=== PATIENT | female | born 1950 | race Caucasian/White ===

== ENCOUNTER 2017-08-02 10:55 | Inpatient (IN) | payer OTHER, MEDICARE ==
[2017-08-02] MEDS ORDERED: SODIUM CHLORIDE 1,000 ML IV STA (11:23)
--- NOTE | 2017-08-02 11:23 | PDOC ---
History of Present Illness - General Chief Complaint: Weakness Stated Complaint: Weakness Time Seen by Provider: 08/02/17 11:08 History Source: Patient, EMS, Family Exam Limitations: No Limitations - History of Present Illness Initial Comments: This is a 67 YOF with h/o ulcerative colitis (s/p hemicolectomy with colostomy in the ), HTN (on atenolol), and hysterectomy (on estrogen patch) who p/w generalized weakness, lightheadedness, nausea, vomiting, and diarrhea for the past two days. She has had decreased PO food and liquid intake but has been able to keep down her normal medications. The vomiting was isolated to a 2-3 hour period on Saturday night shortly after the onset She has not taken medications for her symptoms. She has been having bilateral leg cramps and occasional palpitations as well, but these are not new problems for her (though the leg cramps are the worst they have ever been). She denies any fever, chills , constipation, headache, vision changes, numbness, tingling, focal weakness, chest pain, SOB, leg swelling, abdominal pain, dysuria, strong smells to the urine, strange colors to the urine, black/bloody colostomy output, or other symptoms. Past History - Past Medical History Allergies/Adverse Reactions: Allergies Allergy/AdvReac Type Severity Reaction Status Date / Time Penicillins Allergy Severe Swelling Verified 08/02/17 11:23 shellfish derived Allergy Severe Swelling Verified 08/02/17 11:23 Home Medications: Ambulatory Orders Atenolol [Tenormin -] 25 mg PO HS 07/12/15 Estradiol [Climara] 1 each TD WEEKLY 07/12/15 Cardiac Disorders: Yes (CARDIAC ARRHYTHMIA, MVP) CVA: Yes (RT EYE VISION LOSS) GI Disorders: Yes (ULCERATIVE COLITIS) HTN: Yes - Surgical History Abdominal Surgery: Yes (PROCTOCOLECTOMY WITH ILEOSTOMY 1981.) - Suicide/Smoking/Psychosocial Hx Smoking History: Never smoked Have you smoked in the past 12 months: No Hx Alcohol Use: No Drug/Substance Use Hx: No Substance Use Type: None Review of Systems - Review of Systems Able to Perform ROS?: Yes Constitutional: Yes: Weakness, Unintentional Wgt. Loss. No: Chills, Fever HEENTM: No: Nose Congestion, Throat Pain Respiratory: No: Cough, Shortness of Breath Cardiac (ROS): Yes: Lightheadedness. No: Chest Pain, Palpitations ABD/GI: Yes: Diarrhea, Nausea, Vomiting. No: Constipated : No: Burning, Dysuria Musculoskeletal: No: Back Pain, Neck Pain Integumentary: No: Bruising, Rash Neurological: No: Headache, Numbness, Tingling, Weakness, Dizziness Endocrine: No: Unexplained Weight Gain, Unexplained Weight Loss *Physical Exam - Physical Exam General Appearance: Yes: Appropriately Dressed, Thin, Other (adult female who is resting on hospital bed in no distress, accompanied at bedside by family, answering questions appropriately). No: Apparent Distress HEENT: positive: EOMI, Normal Voice, Hearing Grossly Normal. negative: Scleral Icterus (R), Scleral Icterus (L), Nasal Congestion Neck: positive: Trachea midline, Supple. negative: Tender, Rigid Respiratory/Chest: positive: Lungs Clear, Normal Breath Sounds. negative: Respiratory Distress, Crackles, Rhonchi, Stridor, Wheezing Cardiovascular: positive: S1, S2, Other (regular rate with ectopic beats). negative: JVD Gastrointestinal/Abdominal: positive: Normal Bowel Sounds, Soft. negative: Tender, Organomegaly, Pulsatile Mass, Guarding Musculoskeletal: positive: Normal Inspection. negative: Decreased Range of Motion, Vertebral Tenderness Extremity: positive: Normal Capillary Refill, Normal Inspection, Normal Range of Motion. negative: Tender, Cyanosis Integumentary: positive: Normal Color, Dry, Warm. 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 negative: Facial Droop, Confused, Disoriented ED Treatment Course - LABORATORY CBC & Chemistry Diagram: 08/02/17 12:04 08/02/17 12:04 Medical Decision Making - Medical Decision Making 08/02/17 15:27 Patient states her PCP is Klaeigh Florence at [facility]. *DC/Admit/Observation/Transfer Diagnosis at time of Disposition: Dehydration, MARGOT (acute kidney injury), Hyperbilirubinemia, Generalized weakness Nausea & vomiting Qualifiers: Vomiting type: unspecified Vomiting Intractability: non-intractable Qualified Code(s): R11.2 - Nausea with vomiting, unspecified Diarrhea Qualifiers: Diarrhea type: unspecified type Qualified Code(s): R19.7 - Diarrhea, unspecified - Discharge Dispostion Condition at time of disposition: Guarded Admit: Yes - Referrals - Patient Instructions - Post Discharge Activity
[2017-08-02 12:25] LABS: BASO % 0.2 % (0-2.0); EOS % 0.1 % (0-4.5); HEMATOCRIT 46.5 % (32.4-45.2); HEMOGLOBIN 14.9 GM/dL (10.7-15.3); LYMPH % 8.7 % (8-40); MCH 28.5 pg (25.7-33.7); MCHC 32.1 g/dl (32.0-36.0); MEAN CELL VOLUME 88.8 fl (80-96); MEAN PLT VOLUME 7.4 fl (7.5-11.1); MONO % 16.2 % (3.8-10.2); NEUT % 74.8 % (42.8-82.8); PLATELET COUNT 216 K/MM3 (134-434); RBC 5.23 M/mm3 (3.60-5.2); RDW 15.2 % (11.6-15.6); WHITE BLOOD COUNT 4.3 K/mm3 (4.0-10.0)
[2017-08-02 12:42] LABS: INR 1.08 (0.82-1.09); PROTHROMBIN TIME (PATIENT) 12.2 SEC (9.98-11.88)
--- NOTE | 2017-08-02 12:48 | PDOC ---
Attending Attestation - HPI HPI: 08/02/17 13:20 The patient is a 67 year old female, with a significant past medical history of ulcerative colitis, hypertension, hysterectomy, who presents to the emergency department with, approx. 2 days of generalized weakness, lightheadedness, nausea , emesis and diarrhea. She denies recent fever, chills, or headache. She denies recent chest pain, palpitations or shortness of breath. Allergies: penicillins, shellfish derived Documentation prepared by Maurilio Gupta, acting as medical authorization specialist for Augustus Gilbert MD. <Maurilio Gupta - Last Filed: 08/02/17 14:28> - Resident Resident Name: Rose Marie Reese - ED Attending Attestation I have performed the following: I have examined & evaluated the patient, The case was reviewed & discussed with the resident, I agree w/resident's findings & plan, Exceptions are as noted - Physicial Exam PE: 08/02/17 16:49 Patient is awake and alert, well-nourished, nontoxic-appearing, afebrile; Normocephalic, atraumatic; PERRLA, EOMI, mm-dry cta rrr Soft, nontender, nondistended; ileostomy in the right lower quadrant No rash - Medical Decision Making 08/02/17 16:50 Patient 67-year-old female with history of altered colitis, status post colectomy with ileostomy presents to the ER with generalized weakness and malaise as well as numerous bouts of nonbloody nonbilious vomiting there were limited to a short period of time that have now resolved. In the ER, patient is awake and alert, afebrile, with serial abdominal exams revealing no focal tenderness, there is no evidence of abdominal distention and bowel sounds are normal in all 4 quadrants. CBC reveals elevated H&H likely consistent with hemoconcentration. BUN/creatinine is also elevated from baseline. Will hydrate , will consult GI Will place him of. <Augustus Gilbert - Last Filed: 08/02/17 16:51> Heart Score/ECG Review #1 08/02/17 13:27 Normal Sinus Rhythm at 82 bpm at 11:[address] Gilbert. <Maurilio Gupta - Last Filed: 08/02/17 14:28>
[2017-08-02 13:38] LABS: URINE APPEARANCE CLOUDY; URINE BILIRUBIN NEGATIVE (NEGATIVE); URINE BLOOD 1+ (NEGATIVE); URINE COLOR AMBER; URINE GLUCOSE (UA) NEGATIVE (NEGATIVE); URINE KETONE TRACE (NEGATIVE); URINE LEUK ESTERASE NEGATIVE (NEGATIVE); URINE NITRITE NEGATIVE (NEGATIVE); URINE UROBILINOGEN NEGATIVE mg/dL (0.2-1.0)
[2017-08-02 13:41] LABS: URINE PROTEIN 2+ (NEGATIVE)
[2017-08-02 13:55] LABS: EPI CELLS RARE /HPF (FEW); GRANULAR CASTS 5 /lpf; URINE HYALINE CAST 137 /lpf
--- NOTE | 2017-08-02 13:59 | EKG ---
Test Reason : Blood Pressure : / mmHG Vent. Rate : 082 BPM Atrial Rate : 082 BPM P-R Int : 118 ms QRS Dur : 070 ms QT Int : 398 ms P-R-T Axes : 087 046 -51 degrees QTc Int : 464 ms POOR DATA QUALITY, INTERPRETATION MAY BE ADVERSELY AFFECTED NORMAL SINUS RHYTHM BIATRIAL ENLARGEMENT ABNORMAL ECG WHEN COMPARED WITH ECG OF 13-JUL-2015 09:16, T WAVE INVERSION MORE EVIDENT IN INFERIOR LEADS T WAVE INVERSION NOW EVIDENT IN ANTERIOR LEADS Confirmed by DOMENICA SEVERINO MD ([id number]) on 08/02/2017 1:59:08 PM Referred By: Confirmed By:DOMENICA SEVERINO MD
[2017-08-02 15:14] LABS: ALBUMIN 4.4 g/dl (3.4-5.0); ANION GAP 8 (8-16); BILIRUBIN,TOTAL 1.9 mg/dL (0.2-1.0); BLOOD UREA NITROGEN 40 mg/dL (7-18); CALCIUM 8.7 mg/dL (8.5-10.1); CHLORIDE 102 mmol/L (98-107); CO2 27 mmol/L (21-32); CREATININE 1.9 mg/dL (0.55-1.02); GLUCOSE,RANDOM 97 mg/dL (74-106); MAGNESIUM 2.4 mg/dL (1.8-2.4); POTASSIUM 3.9 mmol/L (3.5-5.1); SGOT/AST 16 U/L (15-37); SGPT/ALT 22 U/L (12-78); SODIUM 137 mmol/L (136-145); TOT PROT 8.6 g/dl (6.4-8.2)
[2017-08-02 15:17] LABS: ALK PHOS 73 U/L (45-117)
[2017-08-02] MEDS ORDERED: DEXTROSE 5%-0.45% SALINE 1,000 ML IV SCH (17:00)
[2017-08-02] MEDS ORDERED: ATENOLOL 25 MG TABLET (FP) ONE (18:10)
[2017-08-02] MEDS ORDERED: ATENOLOL 25 MG TABLET (FP) PO ONE (18:15)
--- NOTE | 2017-08-02 18:25 | PN ---
Teaching Attending Note Name of Resident: Michelle Dacosta ATTENDING PHYSICIAN STATEMENT I saw and evaluated the patient. I reviewed the resident's note and discussed the case with the resident. I agree with the resident's findings and plan as documented. SUBJECTIVE:67yo F with PMH UC s/p total colectomy with colostomy placement, HTN , s/p hysterectomy on estrogen patch presented to the ER with nausea and vomiting and diarrhea. symptoms began on saturday with abdominal pain and nausea and vomiting. assoc with loose stools. abdominal pain with vomiting resolved 2 days ago but the loose stools persisted which prompted her to the ER. states she experiences this infrequently but only last several days. denies CP, SOB, fever, chills, cough, dysuria, hematuria. no recent changes to diet, no recent travel last EGD/colonoscopy was 2 years ago and was negative per pt does watch granddaughter frequently and did watch her on saturday the day her symptoms began. She only had a rash no other symptoms. she attends daycare OBJECTIVE: Last Vital Signs Temp Pulse Resp BP Pulse Ox 98.2 F 94 H 16 158/101 96 08/02/17 16:57 08/02/17 16:57 08/02/17 16:57 08/02/17 16:57 08/02/17 16:57 General NAD thin appearing, bitemporal wasting, prominent clavicles, CV S1 S2 RRR no murmur/rub/gallop Lungs CTA B/L no wheezing/rales/rhonchi Abdomen soft NT/ND +colostomy bag, scaffoid abdomen Extremities no pedal edema ASSESSMENT AND PLAN: 67yo F with PMH UC s/p total colectomy with colostomy placement, HTN, s/p hysterectomy on estrogen patch presented to the ER with nausea and vomiting and diarrhea 1. Diarrhea- medicine observation. high suspicion for viral gastroenteritis. clinically improved iwth IVF. robert cont for now. Gi consulted. check stool cx, O& P. low concern for cdiff (no abdominal pain, fevers, recent ABx use). 2. MARGOT- due to dehydration. give IVF. avoid nephrotoxic agents 3. HTN urgency- due to missing medications. re-start atenolol 4. Hyperbilirubinemia- no signs of jaundice. no signs of cholestasis. will monitor for now, if increased with get abdominal u/s to further evaluate cbd and liver 5. Malnutrition-evident by body habitus and BMI 17. very limited diet. very bland. nutritional eval 6. UC s/p total colectomy with colostomy placement 7. DVT ppx- EAM
--- NOTE | 2017-08-02 18:28 | HP ---
CHIEF COMPLAINT: Diarrhea PCP: Dr. Gomez HISTORY OF PRESENT ILLNESS: 67 yo F with PMHx of UC (total colectomy in the 80s) , HTN, arthritis, s/p hysterectomy (estrogen patch), hiatal hernia, presented to the ED because of profuse, foul-smelling, watery diarrhea that started 2 days ago. Patient says 2 days ago she experienced stabbing, abdominal pain, nausea, and vomiting 2 days ago with B/L LE muscle cramps. She denies a change to her diet. She consumes [employer] Ensure. Patient says the abdominal pain , nausea, and vomiting resolved 2 days ago and presented today because of the persistent diarrhea. Patient states the lower extremity cramps resolved when fluids were given. Patient denies nausea, vomiting, diarrhea, abdominal pain, cramping, SOB, headache, chest pain, dysuria, discoloration of skin, hematemesis , melena, chills, weight loss, fevers, night sweats, numbness, tingling. ER course was notable for: (1) IV Fluids (2) CXR- unremarkable for acute pathology (3) EKG- T wave inversion in anterior and inferior leads Recent Travel: none PAST MEDICAL HISTORY: Per HPI PAST SURGICAL HISTORY: total colectomy in 's, hysterctomy Social History: Smoking: denies Alcohol: denies Drugs: denies Family History: Son with UC Allergies Penicillins Allergy (Severe, Verified 08/02/17 11:23) Swelling "THROAT CLOSES UP" shellfish derived Allergy (Severe, Verified 08/02/17 11:23) Swelling " THROAT CLOSES UP " HOME MEDICATIONS: Home Medications Medication Instructions Recorded Atenolol [Tenormin -] 25 mg PO HS 07/12/15 Estradiol [Climara] 1 each TD WEEKLY 07/12/15 REVIEW OF SYSTEMS CONSTITUTIONAL: generalized weakness Absent: fever, chills, diaphoresis, malaise, loss of appetite, weight change HEENT: Absent: rhinorrhea, nasal congestion, throat pain, throat swelling, difficulty swallowing, mouth swelling, ear pain, eye pain, visual changes CARDIOVASCULAR: Absent: chest pain, syncope, palpitations, irregular heart rate, lightheadedness , peripheral edema RESPIRATORY: Absent: cough, shortness of breath, dyspnea with exertion, orthopnea, wheezing, stridor, hemoptysis GASTROINTESTINAL: diarrhea Absent: abdominal pain, abdominal distension, nausea, vomiting, constipation, melena, hematochezia GENITOURINARY: Absent: dysuria, frequency, urgency, hesitancy, hematuria, flank pain, genital pain MUSCULOSKELETAL: Absent: myalgia, arthralgia, joint swelling, back pain, neck pain SKIN: Absent: rash, itching, pallor HEMATOLOGIC/IMMUNOLOGIC: Absent: easy bleeding, easy bruising, lymphadenopathy, frequent infections ENDOCRINE: Absent: unexplained weight gain, unexplained weight loss, heat intolerance, cold intolerance NEUROLOGIC: Absent: headache, focal weakness or paresthesias, dizziness, unsteady gait, seizure, mental status changes, bladder or bowel incontinence PSYCHIATRIC: Absent: anxiety, depression, suicidal or homicidal ideation, hallucinations. PHYSICAL EXAMINATION Vital Signs - 24 hr 08/02/17 08/02/17 08/02/17 10:55 12:13 16:57 Temperature 97.9 F 98.2 F Pulse Rate 90 84 Pulse Rate [ 94 H Left Apical] Respiratory 18 16 Rate Blood Pressure 175/95 Blood Pressure 158/101 [Left Arm] O2 Sat by Pulse 100 98 96 Oximetry (%) GENERAL: Thin appearing, NAD, appears comfortable HEAD: Normal with no signs of trauma. EYES: Pupils equal, round and reactive to light, extraocular movements intact, sclera anicteric, conjunctiva clear. EARS, NOSE, THROAT: oropharynx clear without exudates. Dry mucous membranes NECK: Normal range of motion, supple without lymphadenopathy, JVD, or masses. LUNGS: Breath sounds equal, clear to auscultation bilaterally. No wheezes, and no crackles. HEART: Regular rate and rhythm, normal S1 and S2 without murmur, rub or gallop. ABDOMEN: Ostomy bag, Soft, nontender, not distended, normoactive bowel sounds MUSCULOSKELETAL: Normal range of motion at all joints. UPPER EXTREMITIES: 2+ pulses, warm, well-perfused. No cyanosis. No clubbing. No peripheral edema. LOWER EXTREMITIES: 2+ pulses, warm, well-perfused. No calf tenderness. No peripheral edema. NEUROLOGICAL: symmetric face, no facial droop, Cranial nerves II-XII intact. Normal speech. 5/5 strength throughout, sensations intact b/l throughout PSYCHIATRIC: Cooperative. Good eye contact. Appropriate mood and affect. SKIN: Warm, dry, normal turgor, no rashes or lesions noted, normal capillary refill. Laboratory Results - last 24 hr 08/02/17 08/02/17 08/02/17 12:04 12:04 12:04 WBC 4.3 RBC 5.23 H Hgb 14.9 Hct 46.5 H MCV 88.8 MCH 28.5 MCHC 32.1 RDW 15.2 Plt Count 216 MPV 7.4 L Neutrophils % 74.8 Lymphocytes % 8.7 Monocytes % 16.2 H Eosinophils % 0.1 Basophils % 0.2 PT with INR 12.20 H INR 1.08 D-Dimer 351 Sodium Potassium Chloride Carbon Dioxide Anion Gap BUN Creatinine Creat Clearance w eGFR Random Glucose Calcium Phosphorus Magnesium Total Bilirubin AST ALT Alkaline Phosphatase Creatine Kinase Troponin I Total Protein Albumin Urine Color Rubi Urine Appearance Cloudy Urine pH 5.0 Ur Specific [place] 1.023 Urine Protein 2+ H Urine Glucose (UA) Negative Urine Ketones Trace H Urine Blood 1+ H Urine Nitrite Negative Urine Bilirubin Negative Urine Urobilinogen Negative Ur Leukocyte Esterase Negative Urine WBC (Auto) 6 Urine RBC (Auto) 6 Ur Epithelial Cells Rare Hyaline Casts 137 Granular Casts 5 Blood Type Antibody Screen 08/02/17 08/02/17 08/02/17 12:04 12:04 12:04 WBC RBC Hgb Hct MCV MCH MCHC RDW Plt Count MPV Neutrophils % Lymphocytes % Monocytes % Eosinophils % Basophils % PT with INR INR D-Dimer Sodium 137 Potassium 3.9 Chloride 102 Carbon Dioxide 27 Anion Gap 8 BUN 40 H Creatinine 1.9 H Creat Clearance w eGFR 26.21 Random Glucose 97 Calcium 8.7 Phosphorus 5.6 H Magnesium 2.4 Total Bilirubin 1.9 H AST 16 ALT 22 Alkaline Phosphatase 73 Creatine Kinase 52 Troponin I < 0.02 Total Protein 8.6 H Albumin 4.4 Urine Color Urine Appearance Urine pH Ur Specific [place] Urine Protein Urine Glucose (UA) Urine Ketones Urine Blood Urine Nitrite Urine Bilirubin Urine Urobilinogen Ur Leukocyte Esterase Urine WBC (Auto) Urine RBC (Auto) Ur Epithelial Cells Hyaline Casts Granular Casts Blood Type O POSITIVE Antibody Screen Negative ASSESSMENT/PLAN: 67 yo F with PMHx of UC (total colectomy in the 80s), HTN, arthritis, s/p hysterectomy (estrogen patch), hiatal hernia, admitted for persistent profuse, foul-smelling, watery diarrhea and MARGOT. #Acute Diarrhea -likely secondary to Gastroenteritis -clinically improved with IV fluids -Afebrile, no leukocytosis or abdominal pain -IV fluids NS@ 75 ml/ hour -GI consulted: Dr. Jones -Stool O & P, Stool culture, Stool WBC -FU am labs #MARGOT -likely hypovolemia from diarrhea and vomiting -BUN 40, Cr 1.9 -IV fluids @75ml/hour -Avoid nephrotoxins -Will monitor #Hyperbilirubinemia -likely consequence of hypovolemia and MARGOT. - ?[place] -T.bili 1.9 -no signs of jaundice, no signs of cholestasis. -Will monitor LFTs -If no improvement, consider Abd U/S to further evaluate common bile duct and liver. #HTN urgency -due to missing medication -1x dose Atenolol 25mg -cont. home Meds Atenolol -Will monitor #Malnutrition -BMI 17 -Hx of Total colectomy -Limited diet -nutritional Eval #Ulcerative colitis -s/p total colectomy () -Follow up outpatient #FEN - D5 1/2 NS @ 125/hour -Replete as needed -Low sodium diet #DVT PPX -EAM Admit OBS Visit type - Emergency Visit Emergency Visit: Yes ED Registration Date: 08/02/17 Care time: The patient presented to the Emergency Department on the above date and was hospitalized for further evaluation of their emergent condition. - New Patient This patient is new to me today: Yes Date on this admission: 08/02/17 - Critical Care Critical Care patient: No
[2017-08-02] MEDS ORDERED: ONDANSETRON 4 MG/2 ML VIAL IVPB PRN (18:51)
[2017-08-02] MEDS: ATENOLOL 25 MG TABLET (FP) PO SCH (21:23)
[2017-08-02] MEDS: SODIUM CHLORIDE 1,000 ML IV SCH (21:28)
[2017-08-02 22:49] VITALS: BMI 16.5
[2017-08-03 08:09] LABS: HEMATOCRIT 40.8 % (32.4-45.2); MCH 28.2 pg (25.7-33.7); MEAN CELL VOLUME 88.1 fl (80-96); MEAN PLT VOLUME 7.2 fl (7.5-11.1); PLATELET COUNT 179 K/MM3 (134-434); RBC 4.63 M/mm3 (3.60-5.2); RDW 14.9 % (11.6-15.6); WHITE BLOOD COUNT 3.3 K/mm3 (4.0-10.0)
[2017-08-03 08:43] LABS: CALCIUM 7.8 mg/dL (8.5-10.1); CHLORIDE 108 mmol/L (98-107); POTASSIUM 3.3 mmol/L (3.5-5.1); SODIUM 142 mmol/L (136-145)
[2017-08-03 08:49] LABS: ALBUMIN 3.4 g/dl (3.4-5.0); ALK PHOS 59 U/L (45-117); ANION GAP 9 (8-16); BILIRUBIN,TOTAL 1.8 mg/dL (0.2-1.0); BLOOD UREA NITROGEN 27 mg/dL (7-18); CO2 25 mmol/L (21-32); CREATININE 0.7 mg/dL (0.55-1.02); GLUCOSE,RANDOM 79 mg/dL (74-106); MAGNESIUM 2.1 mg/dL (1.8-2.4); PHOSPHOROUS 2.4 mg/dL (2.5-4.9); SGOT/AST 16 U/L (15-37); SGPT/ALT 18 U/L (12-78); TOT PROT 6.9 g/dl (6.4-8.2)
[2017-08-03 10:03] LABS: PLATELET ESTIMATE ADEQUATE
--- NOTE | 2017-08-03 11:02 | PN ---
Progress Note (short form) - Note Progress Note: continues to have loose BM through colostomy but less. still feels weak. denies abdominal pain, fever, chills, N/V/C. ate very little breakfast Current Medications Generic Name Dose Route Start Last Admin Trade Name Freq PRN Reason Stop Dose Admin Atenolol 25 mg 08/02/17 22:00 08/02/17 21:23 Tenormin - PO Not Given HS LIBBY Sodium Chloride 1,000 mls @ 75 mls/hr 08/02/17 21:00 08/02/17 21:28 Normal Saline - IV 75 mls/hr ASDIR LIBBY Administration Ondansetron HCl 8 mg 08/02/17 18:51 Zofran Injection IVPB Q6H PRN NAUSEA Last Vital Signs Temp Pulse Resp BP Pulse Ox 97.2 F L 76 18 143/80 98 08/03/17 06:00 08/03/17 06:00 08/03/17 06:00 08/03/17 06:00 08/02/17 20:30 General NAD thin appearing, bitemporal wasting, prominent clavicles, CV S1 S2 RRR no murmur/rub/gallop Lungs CTA B/L no wheezing/rales/rhonchi Abdomen soft NT/ND +colostomy bag, scaffoid abdomen Extremities no pedal edema CBCD WBC 3.3 K/mm3 (4.0-10.0) L 08/03/17 06:55 RBC 4.63 M/mm3 (3.60-5.2) 08/03/17 06:55 Hgb 13.0 GM/dL (10.7-15.3) D 08/03/17 06:55 Hct 40.8 % (32.4-45.2) 08/03/17 06:55 MCV 88.1 fl (80-96) 08/03/17 06:55 MCHC 32.0 g/dl (32.0-36.0) 08/03/17 06:55 RDW 14.9 % (11.6-15.6) 08/03/17 06:55 Plt Count 179 K/MM3 (134-434) 08/03/17 06:55 MPV 7.2 fl (7.5-11.1) L 08/03/17 06:55 CMP Sodium 142 mmol/L (136-145) 08/03/17 06:55 Potassium 3.3 mmol/L (3.5-5.1) L 08/03/17 06:55 Chloride 108 mmol/L (98-107) H 08/03/17 06:55 Carbon Dioxide 25 mmol/L (21-32) 08/03/17 06:55 Anion Gap 9 (8-16) 08/03/17 06:55 BUN 27 mg/dL (7-18) H 08/03/17 06:55 Creatinine 0.7 mg/dL (0.55-1.02) 08/03/17 06:55 Creat Clearance w eGFR > 60 (>60) 08/03/17 06:55 Calcium 7.8 mg/dL (8.5-10.1) L 08/03/17 06:55 Total Bilirubin 1.8 mg/dL (0.2-1.0) H 08/03/17 06:55 AST 16 U/L (15-37) 08/03/17 06:55 ALT 18 U/L (12-78) 08/03/17 06:55 Alkaline Phosphatase 59 U/L (45-117) 08/03/17 06:55 Total Protein 6.9 g/dl (6.4-8.2) 08/03/17 06:55 Albumin 3.4 g/dl (3.4-5.0) 08/03/17 06:55 ASSESSMENT AND PLAN: 67yo F with PMH UC s/p total colectomy with colostomy placement, HTN, s/p hysterectomy on estrogen patch presented to the ER with nausea and vomiting and diarrhea 1. Diarrhea-improving. tolerating very little food. will cont IVF for now. Gi consulted. stool cx pending 2. MARGOT- due to dehydration. resolved. avoid nephrotoxic agents 3. hypokalemia- due to GI losses. Kphos IV 4. hypophosphatemia- KPhos IV 5. HTN urgency- due to missing medications. above goal. addressed with pt wanted to increase medication or start low dose alternative. both pt refused. states she does not tolerate 50mg and other meds "do not agree with her". will monitor for now 6. Hyperbilirubinemia- no signs of jaundice. no signs of cholestasis. stable. no abdominal pain. will defer to GI 7. Malnutrition-evident by body habitus and BMI 17. very limited diet. very bland. nutritional eval 8. UC s/p total colectomy with colostomy placement 9. DVT ppx- EAM Visit type - Emergency Visit Emergency Visit: Yes ED Registration Date: 08/02/17 Care time: The patient presented to the Emergency Department on the above date and was hospitalized for further evaluation of their emergent condition. - New Patient This patient is new to me today: No - Critical Care Critical Care patient: No - Discharge Referral Referred to [facility] Med P.C[facility] No
[2017-08-03] MEDS ORDERED: POTASSIUM PHOSPHATE 30 MM in SODIUM CHLORIDE 500 ML IVPB ONE (12:00)
--- NOTE | 2017-08-03 12:41 | CON.GI ---
Consult Consult Specialty:: GI: Dr. Dow covering for Dr. 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 right ophthalmic stroke) Cardio/Vascular: Yes: HTN, Other (Mitral Valve Prolapse, ? tachyarrhythmia) Gastrointestinal: Yes: Ulcerative Colitis (? Crohn's disease per patient) Musculoskeletal: Yes: Osteoarthritis - Past Surgical History Past Surgical History: Yes: Colectomy (Total in 1981 with stomal revision in 2000 at [facility]), Hysterectomy (CHRISTINE/BSO) - Alcohol/Substance Use Hx Alcohol Use: No History of Substance Use: reports: None - Smoking History Smoking history: Never smoked Have you smoked in the past 12 months: No - Social History Usual Living Arrangement: Alone ADL: Independent Occupation: Retired [employer] Place of : [facility] History of Recent Travel: No Home Medications - Allergies Allergies/Adverse Reactions: Allergies Allergy/AdvReac Type Severity Reaction Status Date / Time Penicillins Allergy Severe Swelling Verified 08/02/17 11:23 shellfish derived Allergy Severe Swelling Verified 08/02/17 11:23 - Home Medications Home Medications: Ambulatory Orders Atenolol [Tenormin -] 25 mg PO HS 07/12/15 Estradiol [Climara] 1 each TD WEEKLY 07/12/15 Family Disease History - Family Disease History Family Disease History: Other: Father ( age 97), Mother ( 83: CHF), Brother (None), Sister (None), Son (1 w/ h/o ulcerative colitis), Daughter (1, healthy) Other Family History: No family history of Colorectal cancer or other GI malignancy Review of Systems - Review of Systems Constitutional: denies: Chills, Fever, Unintentional Wgt. Loss Cardiovascular: denies: Chest Pain Respiratory: denies: Cough, SOB Gastrointestinal: reports: Abdominal Pain (resolved), Diarrhea (Through stoma). denies: Constipation, Melena (No melena through stoma), Rectal Bleeding (No bleeding through stoma) Musculoskeletal: reports: Muscle Cramps (b/l LE: improved) Physical Exam-GI Vital Signs: Vital Signs Temperature 97.2 F L 08/03/17 06:00 Pulse Rate 76 08/03/17 06:00 Respiratory Rate 18 08/03/17 06:00 Blood Pressure 143/80 08/03/17 06:00 O2 Sat by Pulse Oximetry (%) 98 08/02/17 20:30 Constitutional: Yes: Calm Eyes: No: Sclera Icterus Cardiovascular: Yes: Regular Rate and Rhythm. No: Murmur Respiratory: Yes: CTA Bilaterally Gastrointestinal Inspection: Yes: Scars (Vertical left paramedian abdominopelvic surgical scar. Ileostomy in RLQ. [place] Stoma, non tender.). No: Distention ...Auscultate: Yes: Normoactive Bowel Sounds ...Palpate: No: Hepatomegaly, Splenomegaly, Tenderness ...Percussion: No: Tympanitic ...Rectal Exam: Yes: Deferred (Patient s/p total colectomy) Edema: No (No LE edema) Labs: CBC, BMP 08/03/17 06:55 08/03/17 06:55 INR, PTT INR 1.08 (0.82-1.09) 08/02/17 12:04 Problem List - Problems (1) High output ileostomy Assessment/Plan: Acute in onset without change in bowel habit pattern prior to this past Saturday. ? If Ms. Carrillo is experiencing a self limited viral gastroenteritis manifesting as high output from her ileostomy given her lack of colon. Clinically she states feeling better than from admission and renal function has improved Advise: Continuing IV hydration Close monitoring of ileostomy output and stool consistency CT scan of the abdomen/pelvis with PO contrast to exclude subclinical SBO Stool culture has been ordered. Can check stool norovirus PCR and for C. Diff toxin/Ag as well. While patient is S/P colectomy, she has recently received course of Abx and C. Diff enteritis has been reported. Monitor lytes Low fiber/Lactose free diet Check B12/Folate levels Code(s): R19.8 - OTH SYMPTOMS AND SIGNS INVOLVING THE DGSTV SYS AND ABDOMEN; Z93.2 - ILEOSTOMY STATUS
[2017-08-03] MEDS: SODIUM CHLORIDE 1,000 ML IV SCH (21:09)
[2017-08-03] MEDS: ATENOLOL 25 MG TABLET (FP) PO SCH (21:10)
[2017-08-04] MEDS: SODIUM CHLORIDE 1,000 ML IV SCH ×2 (06:09→20:19)
[2017-08-04 06:37] LABS: HEMATOCRIT 41.7 % (32.4-45.2); HEMOGLOBIN 13.7 GM/dL (10.7-15.3); MCH 28.9 pg (25.7-33.7); MCHC 32.8 g/dl (32.0-36.0); MEAN CELL VOLUME 88.1 fl (80-96); MEAN PLT VOLUME 7.7 fl (7.5-11.1); PLATELET COUNT 224 K/MM3 (134-434); RBC 4.74 M/mm3 (3.60-5.2); RDW 15.5 % (11.6-15.6); WHITE BLOOD COUNT 5.1 K/mm3 (4.0-10.0)
[2017-08-04 07:02] LABS: ALBUMIN 3.7 g/dl (3.4-5.0); ANION GAP 4 (8-16); BLOOD UREA NITROGEN 26 mg/dL (7-18); CALCIUM 8.1 mg/dL (8.5-10.1); CHLORIDE 108 mmol/L (98-107); CO2 29 mmol/L (21-32); CREATININE 0.7 mg/dL (0.55-1.02); GLUCOSE,RANDOM 94 mg/dL (74-106); PHOSPHOROUS 2.4 mg/dL (2.5-4.9); POTASSIUM 3.8 mmol/L (3.5-5.1); SGOT/AST 29 U/L (15-37); SGPT/ALT 25 U/L (12-78); SODIUM 141 mmol/L (136-145)
[2017-08-04 07:04] LABS: ALK PHOS 77 U/L (45-117); BILIRUBIN,TOTAL 1.4 mg/dL (0.2-1.0); TOT PROT 7.4 g/dl (6.4-8.2)
[2017-08-04] MEDS: AMINO ACIDS/PROTEIN HYDROLYS 30 ML LIQUID.PKT PO SCH ×2 (08:48→16:40)
[2017-08-04] MEDS ORDERED: PT OWN MED DRAWER 7, Y5N ONE (10:03)
[2017-08-04] MEDS: MULTIVITAMINS (DAILY MVI) TABLET (FP) PO SCH (10:06)
[2017-08-04] MEDS: LACTOBACILLUS ACIDOPHILUS 1 EACH TAB (FP) PO SCH (10:06)
--- NOTE | 2017-08-04 12:40 | PN ---
Physical Exam: SUBJECTIVE: Patient seen and examined Patient resting in bed in mild distress. She states that her diarrhea has worsened after the PO contrast and she cant eat at all. she complains of weakness. She denies n/v. She is afebrile/hemodynamically stable. Patient states that she lives alone and has not been eating well because she stringent dietary restrictions but unable to cook for herself due to severely impaired vision. OBJECTIVE: Vital Signs Period Temp Pulse Resp BP Sys/Lmab Pulse Ox Last 24 Hr 97.8 F-98.1 F 77-89 18-20 140-152/73-92 97-97 GENERAL: The patient is awake, alert, and fully oriented, in mild distress, anorexic HEAD: Normal with no signs of trauma. EYES: PERRL, extraocular movements intact, sclera anicteric, conjunctiva clear. No ptosis. ENT: moist mucous membranes. NECK: Trachea midline, full range of motion, supple. LUNGS: Breath sounds equal, clear to auscultation bilaterally, no wheezes, no crackles, no accessory muscle use. HEART: Regular rate and rhythm, S1, S2 ABDOMEN: thin, Soft, nontender, nondistended, normoactive bowel sounds, no guarding, no rebound, no masses, ostomy in place EXTREMITIES: 2+ pulses, warm, well-perfused, no edema. NEUROLOGICAL: Cranial nerves II through XII grossly intact. Normal speech, gait not observed. PSYCH: Normal mood, normal affect. SKIN: Warm, dry Laboratory Results - last 24 hr 08/04/17 08/04/17 06:25 06:25 WBC 5.1 D RBC 4.74 Hgb 13.7 Hct 41.7 MCV 88.1 MCH 28.9 MCHC 32.8 RDW 15.5 Plt Count 224 D MPV 7.7 Sodium 141 Potassium 3.8 Chloride 108 H Carbon Dioxide 29 Anion Gap 4 L BUN 26 H Creatinine 0.7 Creat Clearance w eGFR > 60 Random Glucose 94 Calcium 8.1 L Phosphorus 2.4 L Magnesium 2.0 Total Bilirubin 1.4 H D AST 29 ALT 25 Alkaline Phosphatase 77 Total Protein 7.4 Albumin 3.7 Active Medications Generic Name Dose Route Start Last Admin Trade Name Freq PRN Reason Stop Dose Admin Amino Acids 30 ml 08/04/17 08:00 08/04/17 08:48 Prosource No Carb Liquid Pkt PO 30 ml BID@0800,1730 LIBBY Administration Atenolol 25 mg 08/02/17 22:00 08/03/17 21:10 Tenormin - PO 25 mg HS LIBBY Administration Sodium Chloride 1,000 mls @ 75 mls/hr 08/02/17 21:00 08/04/17 06:09 Normal Saline - IV 75 mls/hr ASDIR LIBBY Administration Lactobacillus Acidophilus 1 tab 08/04/17 10:00 08/04/17 10:06 Bacid - PO 1 tab DAILY LIBBY Administration Multivitamins/Minerals/Vitamin C 1 tab 08/04/17 10:00 08/04/17 10:06 Tab-A-Vit - PO 1 tab DAILY LIBBY Administration Ondansetron HCl 8 mg 08/02/17 18:51 Zofran Injection IVPB Q6H PRN NAUSEA ASSESSMENT/PLAN: This is a 67 yo F with PMH of UC s/p total colectomy in the 80s, HTN, arthritis , s/p hysterectomy (estrogen patch) and hiatal hernia, who presented due to severe watery diarrhea and MARGOT. Severe Diarrhea -secondary to Gastroenteritis; stool cultures p/d -symptomatically worsened after PO contrast, unable to tolerate PO -contineu IV NS @ 75, zofran -CT abdomen unremarkable for SBO. 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 - New Patient This patient is new to me today: Yes Date on this admission: 08/04/17 - Critical Care Critical Care patient: No - Discharge Referral Referred to [facility] Med P.C.: No
--- NOTE | 2017-08-04 13:07 | DS ---
Physical Exam: SUBJECTIVE: Patient seen and examined OBJECTIVE: Vital Signs Period Temp Pulse Resp BP Sys/Lamb Pulse Ox Last 24 Hr 97.8 F-98.1 F 77-89 18-20 140-152/73-92 97-97 PHYSICAL EXAM GENERAL: The patient is awake, alert, and fully oriented, in no acute distress. HEAD: Normal with no signs of trauma. EYES: PERRL, extraocular movements intact, sclera anicteric, conjunctiva clear. ENT: Ears normal, nares patent, oropharynx clear without exudates, moist mucous membranes. NECK: Trachea midline, full range of motion, supple. LUNGS: Breath sounds equal, clear to auscultation bilaterally, no wheezes, no crackles, no accessory muscle use. HEART: Regular rate and rhythm, S1, S2 without murmur, rub or gallop. ABDOMEN: Soft, nontender, nondistended, normoactive bowel sounds, no guarding, no rebound, no hepatosplenomegaly, no masses. EXTREMITIES: 2+ pulses, warm, well-perfused, no edema. NEUROLOGICAL: Cranial nerves II through XII grossly intact. Normal speech, gait not observed. PSYCH: Normal mood, normal affect. SKIN: Warm, dry, normal turgor, no rashes or lesions noted. LABS Laboratory Results - last 24 hr 08/04/17 08/04/17 06:25 06:25 WBC 5.1 D RBC 4.74 Hgb 13.7 Hct 41.7 MCV 88.1 MCH 28.9 MCHC 32.8 RDW 15.5 Plt Count 224 D MPV 7.7 Sodium 141 Potassium 3.8 Chloride 108 H Carbon Dioxide 29 Anion Gap 4 L BUN 26 H Creatinine 0.7 Creat Clearance w eGFR > 60 Random Glucose 94 Calcium 8.1 L Phosphorus 2.4 L Magnesium 2.0 Total Bilirubin 1.4 H D AST 29 ALT 25 Alkaline Phosphatase 77 Total Protein 7.4 Albumin 3.7 HOSPITAL COURSE: Date of Admission:08/02/17 Date of Discharge: 08/04/17 Discharge Summary Reason For Visit: DEHYDRATION;ACUTE KIDNEY INJURY;HYPERBILIRUBINEMIA Current Active Problems MARGOT (acute kidney injury) (Acute) Dehydration (Acute) Diarrhea (Acute) Generalized weakness (Acute) High output ileostomy (Acute) Hyperbilirubinemia (Acute) Nausea & vomiting (Acute) Condition: Guarded - Instructions - Home Medications Comprehensive Discharge Medication List: Ambulatory Orders Atenolol [Tenormin -] 25 mg PO HS 07/12/15 Estradiol [Climara] 1 each TD WEEKLY 07/12/15 - Discharge Referral Referred to [facility] Med P.C.: No
--- NOTE | 2017-08-04 13:47 | PN ---
Teaching Attending Note Name of Resident: Riya Albert ATTENDING PHYSICIAN STATEMENT I saw and evaluated the patient. I reviewed the resident's note and discussed the case with the resident. I agree with the resident's findings and plan as documented. SUBJECTIVE:c/o abdominal cramping and profuse watery output into colostomy bag. was not able to eat breakfast and only took a few bites of lunch. debbie Cp, SOB , fever, chills, n/V/C/d OBJECTIVE: Last Vital Signs Temp Pulse Resp BP Pulse Ox 98.0 F 89 20 152/92 97 08/04/17 09:03 08/04/17 09:03 08/04/17 09:03 08/04/17 09:03 08/04/17 04:00 General NAD Lungs CTA B/L no wheezing/rales/rhonchi Abdomen soft NT/ND hypoactive BS. colostomy bag full of liquid ASSESSMENT AND PLAN: 67yo F with PMH UC s/p total colectomy with colostomy placement, HTN, s/p hysterectomy on estrogen patch presented to the ER with nausea and vomiting and diarrhea 1. Diarrhea-worsening today however more likely from contrast yesterday. CT abdomen does not show any acute pathology. will cont to encourage po intake. monitor output. will cont IVF for now. Gi consulted. stool cx pending 2. MARGOT- due to dehydration. resolved. avoid nephrotoxic agents 3. hypokalemia- due to GI losses. resolved 4. hypophosphatemia- neutraphos 5. HTN urgency- due to missing medications. above goal. does not want BP meds adjusted. cont atenolol. 6. Hyperbilirubinemia- no signs of jaundice. no signs of cholestasis. trending down. no abdominal pain. will defer to GI 7. Severe Malnutrition-evident by body habitus and BMI 17. very limited diet. very bland. nutritional eval. MVI/ensure 8. UC s/p total colectomy with colostomy placement 9. DVT ppx- EAM 10. unable to tolerate diet at this time. will need continued monitoring until can tolerate.
[2017-08-04] MEDS ORDERED: NAPH,MB-DB/K PH,MBDB POWDER PACKET PO ONE (15:08)
--- NOTE | 2017-08-04 15:36 | PN ---
GI Progress Note Subjective: Was doing better up until after CT scan yesterday evening. Began having copious watery BM's through ileostomy, No abdominal pain and otherwise feels well - Objective Vital Signs: Vital Signs Temperature 98.0 F 08/04/17 09:03 Pulse Rate 89 08/04/17 09:03 Respiratory Rate 20 08/04/17 09:03 Blood Pressure 152/92 08/04/17 09:03 O2 Sat by Pulse Oximetry (%) 97 08/04/17 04:00 Constitutional: Calm Eyes: No: Sclera Icterus Cardiovascular: Yes: Regular Rate and Rhythm Respiratory: Yes: CTA Bilaterally Gastrointestinal Inspection: No: Distention, Scars ...Auscultate: Yes: Normoactive Bowel Sounds ...Palpate: No: Hepatomegaly, Splenomegaly ...Percussion: No: Tympanitic Edema: No Labs: CBC, BMP 08/04/17 06:25 08/04/17 06:25 INR, PTT INR 1.08 (0.82-1.09) 08/02/17 12:04 - ....Imaging Cat Scan: Report Reviewed (No obstruction), Image Reviewed Problem List - Problems (1) High output ileostomy Assessment/Plan: Overall was improving yesterday. Hopefully her increased ileostomy output is from PO contrast consumption Continue supportive measures, IV hydration, recommendations as outlined in initial consult. C. Diff/norovirus stool studies ordered today Code(s): R19.8 - OTH SYMPTOMS AND SIGNS INVOLVING THE DGSTV SYS AND ABDOMEN; Z93.2 - ILEOSTOMY STATUS
[2017-08-04] MEDS: FOLIC ACID 1 MG TABLET (FP) PO SCH (16:40)
[2017-08-04] MEDS: THIAMINE HCL 100 MG TABLET (FP) PO SCH (16:40)
[2017-08-04] MEDS: ATENOLOL 25 MG TABLET (FP) PO SCH (21:07)
--- NOTE | 2017-08-05 06:29 | PN ---
Physical Exam: SUBJECTIVE: Patient seen and examined. No acute events overnight. She still experiences weakness and high watery output from ileostomy. She said the diarrhea improved since yesterday but still has to empty her bag every few hours. She also states she hasn't been able to tolerate yesterdays food but will try again today. Denies abdominal pain, nausea, vomiting, chest pain, sob, fevers. OBJECTIVE: Vital Signs Period Temp Pulse Resp BP Sys/Lamb Pulse Ox Last 24 Hr 97.9 F-98.8 F 82-89 20-20 145-164/76-92 97-97 GENERAL: A/o x 3, appears comfortable, Thin appearing HEAD: Normal with no signs of trauma. EYES: Pupils equal, round and reactive to light, extraocular movements intact, sclera anicteric, conjunctiva clear. EARS, NOSE, THROAT: oropharynx clear without exudates. Dry mucous membranes NECK: supple LUNGS: Breath sounds equal, clear to auscultation bilaterally. No wheezes, and no crackles. HEART: Regular rate and rhythm, normal S1 and S2 without murmur, rub or gallop. ABDOMEN: ileostomy bag, Soft, nontender, not distended, normoactive bowel sounds MUSCULOSKELETAL: Normal range of motion at all joints. LOWER EXTREMITIES: 2+ pulses, warm, well-perfused. No calf tenderness. No peripheral edema. NEUROLOGICAL: symmetric face, no facial droop, Cranial nerves II-XII intact. Normal speech. 5/5 strength throughout, sensations intact b/l throughout PSYCHIATRIC: Cooperative. Good eye contact. Appropriate mood and affect. SKIN: Warm, dry, normal turgor, no rashes or lesions noted, normal capillary refill. Laboratory Results - last 24 hr 08/04/17 08/04/17 06:25 06:25 WBC 5.1 D RBC 4.74 Hgb 13.7 Hct 41.7 MCV 88.1 MCH 28.9 MCHC 32.8 RDW 15.5 Plt Count 224 D MPV 7.7 Sodium 141 Potassium 3.8 Chloride 108 H Carbon Dioxide 29 Anion Gap 4 L BUN 26 H Creatinine 0.7 Creat Clearance w eGFR > 60 Random Glucose 94 Calcium 8.1 L Phosphorus 2.4 L Magnesium 2.0 Total Bilirubin 1.4 H D AST 29 ALT 25 Alkaline Phosphatase 77 Total Protein 7.4 Albumin 3.7 Active Medications Generic Name Dose Route Start Last Admin Trade Name Freq PRN Reason Stop Dose Admin Amino Acids 30 ml 08/04/17 08:00 08/04/17 16:40 Prosource No Carb Liquid Pkt PO 30 ml BID@0800,1730 LIBBY Administration Atenolol 25 mg 08/02/17 22:00 08/04/17 21:07 Tenormin - PO 25 mg HS LIBBY Administration Folic Acid 1 mg 08/04/17 15:15 08/04/17 16:40 Folic Acid - PO 1 mg DAILY LIBBY Administration Sodium Chloride 1,000 mls @ 75 mls/hr 08/02/17 21:00 08/04/17 20:19 Normal Saline - IV 75 mls/hr ASDIR LIBBY Administration Lactobacillus Acidophilus 1 tab 08/04/17 10:00 08/04/17 10:06 Bacid - PO 1 tab DAILY LIBBY Administration Multivitamins/Minerals/Vitamin C 1 tab 08/04/17 10:00 08/04/17 10:06 Tab-A-Vit - PO 1 tab DAILY LIBBY Administration Ondansetron HCl 8 mg 08/02/17 18:51 Zofran Injection IVPB Q6H PRN NAUSEA Thiamine HCl 100 mg 08/04/17 15:15 08/04/17 16:40 Vitamin B1 - PO 100 mg DAILY LIBBY Administration ASSESSMENT/PLAN: 67 yo F with PMHx of UC (total colectomy in the 80s), HTN, arthritis, s/p hysterectomy (estrogen patch), hiatal hernia, admitted for persistent profuse, foul-smelling, watery diarrhea and MARGOT. #Acute Diarrhea -likely secondary to Gastroenteritis -worsened yesterday due to oral contrast. -CT abdomen unremarkable for acute pathology -Stool cultures pending, norovirus stool studies -c.diff negative -Will encourage oral intake -Afebrile, no leukocytosis or abdominal pain -IV fluids NS@ 75 ml/ hour -GI consulted: document output from ileostomy bag, cont. supportive measures, IV hydration -Stool O & P, Stool culture, Stool WBC -Imodium 1 x -FU am labs #Hypophosphatemia -replete as needed -may cause diarrhea, will give low dose -will follow #MARGOT -resolved -likely hypovolemia from diarrhea and vomiting -IV fluids @75ml/hour -Avoid nephrotoxins -Will monitor #Hyperbilirubinemia -trending down -no signs of jaundice, no signs of cholestasis. -Will monitor -GI on board -If no improvement, consider Abd U/S to further evaluate common bile duct and liver. #HTN urgency -above goal -Refused dose adjustment -cont. home Meds Atenolol 25mg -Will monitor #Malnutrition -BMI 17 -Hx of Total colectomy -Limited diet- Ensure -nutritional Eval #Ulcerative colitis -s/p total colectomy () -Follow up outpatient #FEN -NS @ 75 ml/hour -Replete as needed -Low sodium diet #DVT PPX -EAM Will d/c in AM if no events overnight. Visit type - Emergency Visit Emergency Visit: Yes ED Registration Date: 08/04/17 Care time: The patient presented to the Emergency Department on the above date and was hospitalized for further evaluation of their emergent condition. - New Patient This patient is new to me today: No - Critical Care Critical Care patient: No
[2017-08-05 07:30] LABS: BASO % 0.4 % (0-2.0); EOS % 2.5 % (0-4.5); HEMOGLOBIN 12.4 GM/dL (10.7-15.3); LYMPH % 17.1 % (8-40); MCH 28.2 pg (25.7-33.7); MCHC 31.8 g/dl (32.0-36.0); MEAN CELL VOLUME 88.7 fl (80-96); MEAN PLT VOLUME 7.4 fl (7.5-11.1); MONO % 13.8 % (3.8-10.2); NEUT % 66.2 % (42.8-82.8); PLATELET COUNT 183 K/MM3 (134-434); RBC 4.39 M/mm3 (3.60-5.2); WHITE BLOOD COUNT 4.1 K/mm3 (4.0-10.0)
[2017-08-05 07:47] LABS: ALBUMIN 3.1 g/dl (3.4-5.0); ANION GAP 7 (8-16); BILIRUBIN,TOTAL 1.3 mg/dL (0.2-1.0); BLOOD UREA NITROGEN 25 mg/dL (7-18); CALCIUM 8.2 mg/dL (8.5-10.1); CHLORIDE 112 mmol/L (98-107); CO2 24 mmol/L (21-32); GLUCOSE,RANDOM 86 mg/dL (74-106); PHOSPHOROUS 2.2 mg/dL (2.5-4.9); POTASSIUM 4.1 mmol/L (3.5-5.1); SGOT/AST 50 U/L (15-37); SODIUM 143 mmol/L (136-145); TOT PROT 6.5 g/dl (6.4-8.2)
[2017-08-05 07:52] LABS: ALK PHOS 60 U/L (45-117); CREATININE 0.4 mg/dL (0.55-1.02); SGPT/ALT 41 U/L (12-78)
[2017-08-05] MEDS: MULTIVITAMINS (DAILY MVI) TABLET (FP) PO SCH (09:38)
[2017-08-05] MEDS: LACTOBACILLUS ACIDOPHILUS 1 EACH TAB (FP) PO SCH (09:38)
[2017-08-05] MEDS: FOLIC ACID 1 MG TABLET (FP) PO SCH (09:38)
[2017-08-05] MEDS: AMINO ACIDS/PROTEIN HYDROLYS 30 ML LIQUID.PKT PO SCH ×2 (09:38→17:37)
[2017-08-05] MEDS: THIAMINE HCL 100 MG TABLET (FP) PO SCH (09:38)
[2017-08-05] MEDS: SODIUM CHLORIDE 1,000 ML IV SCH ×2 (09:39→21:56)
--- NOTE | 2017-08-05 10:48 | PN ---
GI Progress Note Subjective: complains of continued high volume watery output from ileostomy however volume has not been documented no abdominal pain - Objective Vital Signs: Vital Signs Temperature 98.0 F 08/05/17 09:54 Pulse Rate 74 08/05/17 09:54 Respiratory Rate 20 08/05/17 09:54 Blood Pressure 136/73 08/05/17 09:54 O2 Sat by Pulse Oximetry (%) 97 08/04/17 21:00 Constitutional: Calm Eyes: No: Sclera Icterus Cardiovascular: Yes: Regular Rate and Rhythm Respiratory: No: CTA Bilaterally Gastrointestinal Inspection: No: Distention ...Auscultate: Yes: Normoactive Bowel Sounds ...Palpate: No: Tenderness Edema: No (No LE edema) Neurological: Yes: Alert, Oriented Labs: CBC, BMP 08/05/17 06:23 08/05/17 06:23 INR, PTT INR 1.08 (0.82-1.09) 08/02/17 12:04 Hepatic Panel Total Bilirubin 1.3 mg/dL (0.2-1.0) H 08/05/17 06:23 AST 50 U/L (15-37) H 08/05/17 06:23 ALT 41 U/L (12-78) 08/05/17 06:23 Alkaline Phosphatase 60 U/L (45-117) 08/05/17 06:23 Albumin 3.1 g/dl (3.4-5.0) L 08/05/17 06:23 Problem List - Problems (1) High output ileostomy Assessment/Plan: Complains of continued watery output Stool studies pending Plan: Await stool studies Directed nursing to document output from ileostomy Dosed Imodium 2mg x 1 Code(s): R19.8 - OTH SYMPTOMS AND SIGNS INVOLVING THE DGSTV SYS AND ABDOMEN; Z93.2 - ILEOSTOMY STATUS (2) Hyperbilirubinemia Assessment/Plan: Isolated: Check hepatic panel to asses if primarily direct or indirect. Suspect Gilbert's Code(s): E80.6 - OTHER DISORDERS OF BILIRUBIN METABOLISM
[2017-08-05] MEDS ORDERED: LOPERAMIDE HCL 2 MG CAPSULE PO ONE (10:49)
[2017-08-05] MEDS ORDERED: NAPH,MB-DB/K PH,MBDB POWDER PACKET PO ONE ×2 (13:09→14:30)
--- NOTE | 2017-08-05 13:12 | PN ---
Teaching Attending Note Name of Resident: Michelle Dacosta ATTENDING PHYSICIAN STATEMENT I saw and evaluated the patient. I reviewed the resident's note and discussed the case with the resident. I agree with the resident's findings and plan as documented. SUBJECTIVE:c/o high output from ostomy bag, was unable to tolerate dinner and only a few bites of breakfast. states she changed bag every hour yesterday but only changed it once so far today. denies Cp, SOB, fever, chills, N/V OBJECTIVE: Last Vital Signs Temp Pulse Resp BP Pulse Ox 98.0 F 74 20 136/73 97 08/05/17 09:54 08/05/17 09:54 08/05/17 09:54 08/05/17 09:54 08/04/17 21:00 General NAD Lungs CTA B/L no wheezing/rales/rhonchi Abdomen soft NT/ND hypoactive BS. ASSESSMENT AND PLAN: 67yo F with PMH UC s/p total colectomy with colostomy placement, HTN, s/p hysterectomy on estrogen patch presented to the ER with nausea and vomiting and diarrhea 1. Diarrhea-somewhat improved today. tolerating very little diet. Cdiff negative. stool cx still pending. will re-assess later today to evaluate if able to tolerate more to eat.will cont IVF for now. Gi consulted. 2. MARGOT- due to dehydration. resolved. avoid nephrotoxic agents 3. hypokalemia- due to GI losses. resolved 4. hypophosphatemia- neutraphos (although this could add to diarrhea) will give minimal amount 5. HTN urgency- due to missing medications. above goal. does not want BP meds adjusted. cont atenolol. 6. Hyperbilirubinemia- no signs of jaundice. no signs of cholestasis. trending down. no abdominal pain. will defer to GI 7. Severe Malnutrition-evident by body habitus and BMI 17. very limited diet. very bland. nutritional eval. MVI/ensure 8. UC s/p total colectomy with colostomy placement 9. DVT ppx- EAM 10. will re-assess later today, if able to tolerate diet and output from bag has decreased can d/c home.
[2017-08-05] MEDS: ATENOLOL 25 MG TABLET (FP) PO SCH (21:58)
--- NOTE | 2017-08-06 06:34 | DS ---
Physical Exam: SUBJECTIVE: Patient seen and examined. No acute events overnight. Patient offers no new complaints. Last night she had 250cc of stool output and 100cc this morning. She says the stool is more formed this morning. Patient denies abdominal pain, nausea, vomiting, dizziness, chest pain, SOB. OBJECTIVE: Vital Signs Period Temp Pulse Resp BP Sys/Lamb Pulse Ox Last 24 Hr 97.5 F-98.1 F 74-84 20-20 131-148/70-85 97-98 PHYSICAL EXAM GENERAL: A/o x 3, appears comfortable, Thin appearing HEAD: Normal with no signs of trauma. EYES: Pupils equal, round and reactive to light, extraocular movements intact, sclera anicteric, conjunctiva clear. EARS, NOSE, THROAT: oropharynx clear without exudates. Moist mucous membranes NECK: supple LUNGS: Breath sounds equal, clear to auscultation bilaterally. No wheezes, and no crackles. HEART: Regular rate and rhythm, normal S1 and S2 without murmur, rub or gallop. ABDOMEN: ileostomy bag, Soft, nontender, not distended, normoactive bowel sounds MUSCULOSKELETAL: Normal range of motion at all joints. LOWER EXTREMITIES: 2+ pulses, warm, well-perfused. No calf tenderness. No peripheral edema. PSYCHIATRIC: Cooperative. Good eye contact. Appropriate mood and affect. SKIN: Warm, dry, normal turgor, no rashes or lesions noted, normal capillary refill. LABS Laboratory Results - last 24 hr 08/05/17 08/05/17 06:23 06:23 WBC 4.1 RBC 4.39 Hgb 12.4 Hct 39.0 MCV 88.7 MCH 28.2 MCHC 31.8 L RDW 15.0 Plt Count 183 MPV 7.4 L Neutrophils % 66.2 Lymphocytes % 17.1 D Monocytes % 13.8 H Eosinophils % 2.5 D Basophils % 0.4 Sodium 143 Potassium 4.1 Chloride 112 H Carbon Dioxide 24 Anion Gap 7 L BUN 25 H Creatinine 0.4 L Creat Clearance w eGFR > 60 Random Glucose 86 Calcium 8.2 L Phosphorus 2.2 L Magnesium 2.0 Total Bilirubin 1.3 H AST 50 H ALT 41 Alkaline Phosphatase 60 Total Protein 6.5 Albumin 3.1 L HOSPITAL COURSE: Date of Admission:08/04/17 67 yo F with PMHx of UC (total colectomy in the 80s), HTN, arthritis, s/p hysterectomy (estrogen patch), hiatal hernia, admitted for persistent profuse, foul-smelling, watery diarrhea from ileostomy bag likely secondary to gastroenteritis with MARGOT from hypovolemia. GI consulted. CT Abd: unremarkable for acute pathology. C. Diff negative. Patient was afebrile on admission without leukocytosis. Patient was fluid resuscitated with IV fluids. Stool cultures negative at this time. MARGOT resolved with hydration and patient's high output improved. Patient also presented with hypertension. Discussed importance of BP control with patient but patient refused adjustment of BP meds. She said she will continue with her Atenolol 25mg. Patient also malnourished with BMI of 17 (s/p total colectomy). Will have sit down with registered land surveyor regarding diet after discharge. PT jasmeet, home VNS per patient request. Date of Discharge: 08/06/17 Minutes to complete discharge: 35 Discharge Summary Reason For Visit: DEHYDRATION;ACUTE KIDNEY INJURY;HYPERBILIRUBINEMIA Current Active Problems MARGOT (acute kidney injury) (Acute) Dehydration (Acute) Diarrhea (Acute) Generalized weakness (Acute) High output ileostomy (Acute) Hyperbilirubinemia (Acute) Nausea & vomiting (Acute) Condition: Improved - Instructions Diet, Activity, Other Instructions: You will need to follow up with your primary care physician in 1 week. Have your doctor follow your blood pressure. It may need a dose adjustment. Also follow up BMP, Magnesium and Phosphorus with your primary care physician. Follow up with your GI doctor in 1 week. Maintain a low sodium, lactose free diet. Make sure you stay hydrated by drinking fluids at home. If you feel your symptoms are worsening, call your doctor or go to the nearest emergency room. Referrals: Joanna Jones MD [Staff Physician] - Disposition: VNS/HOME HEALTH CARE - Home Medications Comprehensive Discharge Medication List: Ambulatory Orders Atenolol [Tenormin -] 25 mg PO HS 07/12/15 Estradiol [Climara] 1 each TD WEEKLY 07/12/15 This patient is new to me today: Yes Date on this admission: 08/08/17 Emergency Visit: No Critical Care patient: No - Discharge Referral Referred to [facility] Med P.C.: No
[2017-08-06 08:19] LABS: MAGNESIUM 1.7 mg/dL (1.8-2.4); PHOSPHOROUS 2.1 mg/dL (2.5-4.9)
[2017-08-06] MEDS ORDERED: MAGNESIUM SULF 50% (8.12 MEQ/2 ML-1 GM VIAL) IVPB ONE (08:41)
[2017-08-06] MEDS ORDERED: MAGNESIUM SULFATE IN WATER 2 GM/50 ML IVPB IVPB ONE (09:00)
[2017-08-06] MEDS ORDERED: NAPH,MB-DB/K PH,MBDB POWDER PACKET PO ONE ×3 (09:00→09:15)
[2017-08-06] MEDS: MULTIVITAMINS (DAILY MVI) TABLET (FP) PO SCH (09:38)
[2017-08-06] MEDS: FOLIC ACID 1 MG TABLET (FP) PO SCH (09:38)
[2017-08-06] MEDS: LACTOBACILLUS ACIDOPHILUS 1 EACH TAB (FP) PO SCH (09:38)
[2017-08-06] MEDS: AMINO ACIDS/PROTEIN HYDROLYS 30 ML LIQUID.PKT PO SCH (09:38)
[2017-08-06] MEDS: THIAMINE HCL 100 MG TABLET (FP) PO SCH (09:38)
--- NOTE | 2017-08-06 11:39 | PN ---
Teaching Attending Note Name of Resident: Michelle Dacosta ATTENDING PHYSICIAN STATEMENT I saw and evaluated the patient. I reviewed the resident's note and discussed the case with the resident. I agree with the resident's findings and plan as documented. SUBJECTIVE: Patient seen and examined, diarrhea improved. No nausea or abdominal pain, tolerating diet well, ambulating with no concerns. no dizziness. OBJECTIVE: Vital Signs Period Temp Pulse Resp BP Sys/Lamb Pulse Ox Last 24 Hr 97.5 F-98.2 F 73-84 20-20 131-148/70-85 98 Intake & Output 08/03/17 08/04/17 08/05/17 08/06/17 23:59 23:59 23:59 23:59 Intake Total 950 2650 3185 665 Output Total 202 300 Balance 748 2650 2885 665 general: ambulating in room, no acute distress Abdomen: ileostomy, soft, NT throughout, ND, no voluntary or involuntary guarding or rigidity, positive bowel sounds chest: CTAB, no rales or wheezing Home Medication List Medication Instructions Recorded Confirmed Type Atenolol [Tenormin -] 25 mg PO HS 07/12/15 08/02/17 History Estradiol [Climara] 1 each TD WEEKLY 07/12/15 08/02/17 History Active Medications Generic Name Dose Route Start Last Admin Trade Name Sarojq PRN Reason Stop Dose Admin Amino Acids 30 ml 08/04/17 08:00 08/06/17 09:38 Prosource No Carb Liquid Pkt PO 30 ml BID@0800,1730 LIBBY Administration Atenolol 25 mg 08/02/17 22:00 08/05/17 21:58 Tenormin - PO 25 mg HS LIBBY Administration Folic Acid 1 mg 08/04/17 15:15 08/06/17 09:38 Folic Acid - PO 1 mg DAILY LIBBY Administration Sodium Chloride 1,000 mls @ 75 mls/hr 08/02/17 21:00 08/05/17 21:56 Normal Saline - IV 75 mls/hr ASDIR LIBBY Administration Lactobacillus Acidophilus 1 tab 08/04/17 10:00 08/06/17 09:38 Bacid - PO 1 tab DAILY LIBBY Administration Multivitamins/Minerals/Vitamin C 1 tab 08/04/17 10:00 08/06/17 09:38 Tab-A-Vit - PO 1 tab DAILY LIBBY Administration Ondansetron HCl 8 mg 08/02/17 18:51 Zofran Injection IVPB Q6H PRN NAUSEA Thiamine HCl 100 mg 08/04/17 15:15 08/06/17 09:38 Vitamin B1 - PO 100 mg DAILY LIBBY Administration Laboratory Results - last 24 hr 08/06/17 06:00 Phosphorus 2.1 L Magnesium 1.7 L Microbiology 08/04/17 15:01 Stool Norovirus GI - Preliminary 08/04/17 15:01 Stool Norovirus GII - Preliminary 08/04/17 23:45 Stool Clostridium difficile Antigen (TAIWO) - Final 08/04/17 23:45 Stool Clostridium difficile Toxin Assay - Final 08/03/17 01:00 Stool Salmonella/Shigella Culture - Preliminary NO ENTERIC PATHOGENS, 24 HOURS, ON PRIMARY PLATES 08/03/17 01:00 Stool Yersinia Culture - Preliminary NO ENTERIC PATHOGENS, 24 HOURS, ON PRIMARY PLATES 08/03/17 01:00 Stool Vibrio Culture - Final NO GROWTH OF VIBRIO SPECIES OBTAINED 08/03/17 01:00 Stool Escherichia coli 0157 Culture - Final NO GROWTH OF E COLI 0157 OBTAINED 08/03/17 01:00 Stool Gram Stain - Final 08/02/17 12:04 Urine - Urine Clean Catch Urine Culture - Final Contaminated: Please Repeat ASSESSMENT AND PLAN: 67 yof with ulcerative colitis (s/p total colectomy in 1980s), HTN, Hiatal hernia, s/p hysterectomy (on estrogen patch), admitted with intractable diarrhea , likely viral gastroenteritis. -Intractable diarrhea, likely viral gastroenteritis -MARGOT, likely hypovolumia, resolved -Hypomagnesemia -Hypophosphatemia -Uncontrolled HTN, from inability to take oral meds -Hyperbilirubinemia, improved, no abdominal or cholestatic concerns, -Ulcerative colitis s/p colectomy Plan: Diarrhea improved. Infectious w/u neg. Loperamide prn. GI input appreciated. Tolerating diet well, d/c IVF. Reports high watery stool at baseline since her colectomy. Defer stool bulking agents to GI Nutrition consult. Replete Mg, Phos. Bilirubin improved, no abdominal or GI concerns. Outpatient GI follow up. Continue ATenolol. PT eval, home VNS per patient request. Dc likely later today if no new concerns and disposition arranged. Plan discussed with patient in detail, all questions answered.
[2017-08-06 15:07] VITALS: BP 148/75; PULSE 72; TEMP 97.4
== END 2017-08-06 16:50 | disposition home health service (06) | DRG 682 ==
LOC: JER 10:55 → JERBED 16:57 → J5S 19:22 → OBSVTOIN 08-04 11:40
PROVIDERS: ADMIT Internal Medicine; ATTEND Hospitalist
DX: N17.9 Acute kidney failure, unspecified (principal); E43 Unspecified severe protein-calorie malnutrition; Z68.1 Body mass index [BMI] 19.9 or less, adult; R19.7 Diarrhea, unspecified; E80.6 Other disorders of bilirubin metabolism; I10 Essential (primary) hypertension; E86.1 Hypovolemia; E83.42 Hypomagnesemia; E83.39 Other disorders of phosphorus metabolism; E87.6 Hypokalemia
CPT/HCPCS: 36415; 71045-TC; 74176-TC; 80053; 81003; 81015; 82550; 83735; 84100; 84484; 85025; 85027; 85379; 85610; 86850; 86900; 86901; 87045; 87046; 87086; 87177; 87205; 87209; 87324; 87449; 87798; 93005; 93010; 97116-GP; 97161-GP; 99285-25; G0378